=== PATIENT | male | born 2005 | race African-American/Black ===

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

== ENCOUNTER 2024-03-21 15:37 | Emergency (ER) | payer MEDICAID ==
[~2024-03-21] VITALS: Ht 170.2 cm; Wt 66.3 kg
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
[2024-03-21] MEDS: TETRACAINE HCL 0.5% OPTH(EYE) SOLN 4ML EACHEYE ONE (16:39)
[2024-03-21] MEDS ORDERED: NEOM0.1O7 OP (16:57)
[2024-03-21] MEDS ORDERED: HYDR-4902 PO (16:57)
[2024-03-21 17:21] VITALS: BP 112/68; PULSE 68; RESP 20; TEMP 98.1; O2SAT 100
== END 2024-03-21 17:23 | disposition home or self-care (01) ==
LOC: ER 15:37
DX: H16.133 Photokeratitis, bilateral (principal); F15.90 Other stimulant use, unspecified, uncomplicated

== ENCOUNTER 2024-07-11 10:14 | Emergency (ER) | payer MEDICAID ==
[~2024-07-11] VITALS: Ht 172.7 cm; Wt 63.5 kg
[~2024-07-11 10:14] MED LIST: HYDR-4902 PO; NEOM0.1O7 OP
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
[2024-07-11] MEDS: IBUPROFEN 800 MG TAB PO ONE (12:16)
[2024-07-11] MEDS: TETANUS-DIPTH-ACEL PERTUSSIS 0.5ML SYR Tdap IM ONE (12:16)
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
[2024-07-11] MEDS ORDERED: IBUP-1455 PO (13:03)
[2024-07-11 13:13] VITALS: BP 130/47; PULSE 95; RESP 17; O2SAT 97
[2024-07-11 13:16] VITALS: TEMP 97.9
== END 2024-07-11 13:22 | disposition home or self-care (01) ==
LOC: EDBD 10:14 → ER 10:14
DX: S16.1XXA Strain of muscle, fascia and tendon at neck level, initial encounter (principal); S00.83XA Contusion of other part of head, initial encounter; J45.909 Unspecified asthma, uncomplicated; Y08.89XA Assault by other specified means, initial encounter; Y93.89 Activity, other specified; Y92.89 Other specified places as the place of occurrence of the external cause; Y99.8 Other external cause status
CPT/HCPCS: 70450; 70486; 72125; 90471; 90715